=== PATIENT | female | born 1975 | race Caucasian/White ===

== ENCOUNTER → 2018-10-07 08:18 | Outpatient (CLI) | payer OTHER, SELFPAY ==
[2018-10-07 09:02] LABS: Add Manual Diff / Slide Review NO; Basophils Absolute Auto 100 /uL (0-100); Basophils Percent Auto 2.1 % (0-2); Eosinophils Absolute Auto 200 /uL (0-450); Hematocrit 40.4 % (36-46); Hemoglobin 13.4 g/dL (12.0-16.0); Lymphocytes Absolute Auto 1700 /uL (1100-4500); Lymphocytes Percent Auto 32.9 % (25-40); Mean Corpuscular HGB Conc 33.3 % (30-36); Mean Corpuscular Hemoglobin 28.3 PG (26-34); Monocytes Absolute Auto 400 /uL (0-900); Monocytes Percent Auto 7.4 % (3-14); Neutrophils Absolute Auto 2700 /uL (1500-7000); Neutrophils Percent Auto 53.6 % (50-75); Platelet Count 280 X10^3/uL (150-400); Red Blood Cell Count 4.76 X10^6/uL (4.0-5.2); Red Cell Distribution Width 15.5 % (11.6-14.8)
[2018-10-07 09:16] LABS: Blood Urea Nitrogen 12 mg/dL (7-17); Calcium 9.2 mg/dL (8.4-10.2); Carbon Dioxide 25 mmol/L (22-32); Chloride 107 mmol/L (98-107); Cholesterol 226 mg/dL (140-199); Estimated Glomerular Filt Rate > 60.0 mL/min (>60); Glucose 92 mg/dL (70-100); HDL Cholesterol 75 mg/dL (40-60); HEMOLYSIS < 15 (0-50); LDL Cholesterol Calculated 135 mg/dL (<100); Potassium 4.2 mmol/L (3.4-5.1); Sodium 141 mmol/L (137-145); Triglycerides 82 mg/dL (35-150)
[2018-10-07 10:34] LABS: Vitamin D 25 Hydroxy (D3) 31.3 ng/mL (30.0-100.0)
[2018-10-09 17:35] LABS: Cancer (Carbohydrate) Ag 19-9 9 U/mL (< 34)
== END ==
PROVIDERS: PCP Internal Medicine; Visit Provider Internal Medicine
DX: D50.8 Other iron deficiency anemias (principal); E55.9 Vitamin D deficiency, unspecified; Z00.00 Encounter for general adult medical examination without abnormal findings
CPT/HCPCS: 36415; 80048; 80061; 82306; 85025; 86301

== ENCOUNTER → 2019-05-06 11:58 | Outpatient (CLI) | payer OTHER, SELFPAY ==
--- NOTE | 2019-05-06 | DI.RAD.S_ITS ---
PROCEDURE: XR CHEST 2V INDICATIONS: Cough TECHNIQUE: 2 views of the chest were acquired. COMPARISON: [facility], , CHEST 2 VIEW, 06/20/2014, 17:25. FINDINGS: Surgical changes and devices: Posterior spinal fixation hardware Lungs and pleura: Lungs are clear. No pleural effusions or pneumothorax. Mediastinum: Mediastinal contours are normal. Heart size is normal. Bones and chest wall: No suspicious bony abnormalities. Scoliosis and discogenic changes. Soft tissues appear unremarkable. IMPRESSION: No acute disease Dictated by: Reggie Mccray M.D. on 05/06/2019 at 16:31 Approved by: Reggie Mccray M.D. on 05/06/2019 at 16:32
== END ==
PROVIDERS: PCP Internal Medicine; Referring Provider Naturopath; Visit Provider Naturopath
DX: R05 Cough (principal)
CPT/HCPCS: 71046